=== PATIENT | female | born 1990 | race Caucasian/White ===

== ENCOUNTER 2019-10-20 20:56 | Outpatient (CLI) | payer OTHER ==
[~2019-10-20] VITALS: Ht 167.6 cm; Wt 69.1 kg
[2019-10-20 21:04] VITALS: BP 109/74
[2019-10-20 21:50] LABS: MICROSCOPIC INDICATED
[2019-10-20] MEDS ORDERED: TERBUTALINE 1 MG/ML, 1ML ONE (21:54)
[2019-10-20] MEDS ORDERED: TERBUTALINE 1 MG/ML, 1ML SQ ONE (22:00)
== END 2019-10-20 23:33 | disposition home or self-care (01) ==
LOC: LDOP 20:56
PROVIDERS: ATTEND Student in an Organized Health Care Education/Training Program
DX: O26.893 Other specified pregnancy related conditions, third trimester (principal); R10.9 Unspecified abdominal pain; Z3A.32 32 weeks gestation of pregnancy
CPT/HCPCS: 59025; 81001; 87086; 96372; 99201; J3105; G0463

== ENCOUNTER 2019-11-16 03:49 | Inpatient (IN) | payer OTHER ==
[~2019-11-16] VITALS: Ht 167.6 cm; Wt 72.3 kg
[2019-11-16 04:01] VITALS: BP 120/77
[2019-11-16] MEDS ORDERED: OXYTOCIN 30U/ 0.9% NaCL 500ML 500 ML IV PRN (05:01)
[2019-11-16] MEDS ORDERED: OXYTOCIN 30U/ 0.9% NaCL 500ML 500 ML IV ONE (05:01)
[2019-11-16] MEDS ORDERED: D5%-LACTATED RINGERS 1,000 ML IV SCH (05:01)
[2019-11-16 05:04] LABS: MICROSCOPIC INDICATED
[2019-11-16] MEDS ORDERED: LIDOCAINE 1%, 20ML ONE (05:12)
[2019-11-16] MEDS ORDERED: MISOPROSTOL 200 MCG TABLET ONE (05:12)
[2019-11-16] MEDS ORDERED: OXYTOCIN 30U/ 0.9% NaCL 500ML 500 ML ONE ×2 (05:12→10:15)
[2019-11-16] MEDS ORDERED: PREN1TAB60 PO (05:14)
[2019-11-16] MEDS ORDERED: NEWBORN KIT ONE (05:21)
[2019-11-16] MEDS ORDERED: FENTANYL PF 100 MCG/2ML IVPush PRN (05:30)
[2019-11-16] MEDS ORDERED: ONDANSETRON 2MG/ML, 2ML IVPush PRN (05:30)
[2019-11-16] MEDS ORDERED: PENICILLIN GK 5,000,000 UNITS in DEXTROSE 5% 100 ML IVPB ONE (05:30)
[2019-11-16] MEDS ORDERED: TERBUTALINE 1 MG/ML, 1ML IVPush PRN (05:30)
[2019-11-16] MEDS ORDERED: FENTANYL PF 100 MCG/2ML IV PRN (05:30)
[2019-11-16] MEDS ORDERED: TERBUTALINE 1 MG/ML, 1ML SQ PRN (05:30)
[2019-11-16] MEDS: LACTATED RINGERS 1,000 ML IV SCH ×3 (06:03→10:17)
[2019-11-16] MEDS ORDERED: FENTANYL/BUPIV./NS/PF 250 ML EPIDCONT SCH (06:05)
[2019-11-16 06:20] LABS: BASOPHILS # (AUTO) 0.03 x10^3/uL (0-0.1); BASOPHILS % (AUTO) 0 % (0-1); EOSINOPHILS # (AUTO) 0.07 x10^3/uL (0-0.4); EOSINOPHILS % (AUTO) 1 % (1-7); LYMPHOCYTES # (AUTO) 1.64 x10^3/uL (1-3.4); LYMPHOCYTES % (AUTO) 17 % (22-44); MD NO; MEAN CORPUSCULAR HEMOGLOBIN 33.9 pg (27.0-34.8); MEAN CORPUSCULAR HGB CONC 34.2 g/dL (32.4-35.8); MEAN CORPUSCULAR VOLUME 99.2 fL (80-100); MEAN PLATELET VOLUME 9.1 fL (7.4-10.4); MONOCYTES # (AUTO) 0.66 x10^3/uL (0.2-0.8); MONOCYTES % (AUTO) 7 % (2-9); NEUTROPHILS # (AUTO) 7.22 x10^3/uL (1.8-6.8); NEUTROPHILS % (AUTO) 75 % (42-75); PLATELET COUNT 182 x10^3/uL (130-400); RED BLOOD COUNT 4.25 x10^6/uL (3.82-5.3); RED CELL DISTRIBUTION WIDTH 12.3 % (9.6-15.2)
[2019-11-16] MEDS ORDERED: FENTANYL PF 500 MCG, BUPIVACAINE/PF 0.5%, 30ML 62.5 ML in SODIUM CHLORIDE 0.9% 177.5 ML EPIDCONT SCH (06:30)
[2019-11-16] MEDS ORDERED: FENTANYL PF 100 MCG/2ML ONE (06:33)
[2019-11-16] MEDS ORDERED: BUPIVACAINE 0.25% ONE (06:49)
[2019-11-16] MEDS ORDERED: LIDOCAINE/PF 1.5%-EPI 1:200K, 30ML ONE (06:55)
[2019-11-16] MEDS ORDERED: BETAMETHASONE 6 MG/ML, 5ML IM ONE ×2 (07:03→07:30)
[2019-11-16] MEDS ORDERED: SIMETHICONE 80 MG CHEW TAB PO PRN (09:00)
[2019-11-16] MEDS ORDERED: PENICILLIN GK 2,500,000 UNITS in DEXTROSE 5% 100 ML IVPB SCH (09:30)
[2019-11-16] MEDS: OXYTOCIN 30U/ 0.9% NaCL 500ML 500 ML IV SCH ×2 (10:18→18:50)
[2019-11-16 10:55] VITALS: BP 114/70
[2019-11-16 14:51] VITALS: BP 111/72
[2019-11-16] MEDS: PRENATAL VIT/IRON/FA 1 EACH TABLET PO SCH (15:18)
[2019-11-16 17:27] LABS: MEAN CORPUSCULAR HGB CONC 34.4 g/dL (32.4-35.8); MEAN PLATELET VOLUME 9.6 fL (7.4-10.4); PLATELET COUNT 206 x10^3/uL (130-400); RED BLOOD COUNT 4.28 x10^6/uL (3.82-5.3); RED CELL DISTRIBUTION WIDTH 12.3 % (9.6-15.2)
[2019-11-16 17:41] LABS: MD YES
[2019-11-16 18:00] LABS: <PLATELET ESTIMATE> ADEQUATE; <PLT MORPHOLOGY> NORMAL PLT MORPH; <RBC MORPHOLOGY> NORMAL; BAND#(MANUAL) 0.41 x10^3/uL; BANDS%(MANUAL) 3 % (0-7); LYMPH#(MANUAL) 0.97 x10^3/uL (1-3.4); LYMPHS% (MANUAL) 7 % (22-44); MONOS#(MANUAL) 0.14 x10^3/uL (0.3-2.7); MONOS% (MANUAL) 1 % (2-9); SEG#(MANUAL) 12.28 x10^3/uL (1.8-6.8); SEGS% (MANUAL) 89 % (42-75)
[2019-11-16] MEDS ORDERED: METHYLERGONOVINE 0.2 MG/ML IM PRN (19:00)
[2019-11-16] MEDS ORDERED: CARBOPROST TROMETHAMINE 250 MCG/ML, 1ML IM PRN (19:00)
[2019-11-16] MEDS ORDERED: MISOPROSTOL 200 MCG TABLET PO PRN (19:00)
[2019-11-16] MEDS ORDERED: OXYcodone/APAP 5/325MG TABLET PO PRN ×2 (19:00)
[2019-11-16 20:02] VITALS: BP 130/87
[2019-11-17] VITALS: BP 126/79
[2019-11-17] MEDS: IBUPROFEN 600 MG TABLET PO PRN ×3 (02:40→20:09)
[2019-11-17] MEDS: OXYTOCIN 30U/ 0.9% NaCL 500ML 500 ML IV SCH ×2 (04:23→14:50)
[2019-11-17 05:21] VITALS: BP 120/82
[2019-11-17 07:25] VITALS: BP 114/73
[2019-11-17] MEDS: DOCUSATE 100 MG CAPSULE PO PRN ×2 (09:20→20:09)
[2019-11-17] MEDS: PRENATAL VIT/IRON/FA 1 EACH TABLET PO SCH (09:20)
[2019-11-17 20:15] VITALS: BP 126/84
[2019-11-18] MEDS: OXYTOCIN 30U/ 0.9% NaCL 500ML 500 ML IV SCH (00:50)
[2019-11-18] MEDS: IBUPROFEN 600 MG TABLET PO PRN (04:58)
[2019-11-18 07:30] VITALS: BP 129/81
[2019-11-18] MEDS: PRENATAL VIT/IRON/FA 1 EACH TABLET PO SCH (09:00)
[2019-11-18] MEDS ORDERED: IBUP-1222 PO (09:03)
== END 2019-11-18 10:30 | disposition home or self-care (01) | DRG 807 ==
LOC: LDOP 03:49 → LDIP 05:19 → 2NW 10:44
PROVIDERS: ADMIT Student in an Organized Health Care Education/Training Program; ATTEND Student in an Organized Health Care Education/Training Program
PROC: 10E0XZZ Delivery of Products of Conception, External Approach (ICD-10-PCS; principal; 2019-11-16)
PROC: 3E0R3BZ Introduction of Anesthetic Agent into Spinal Canal, Percutaneous Approach (ICD-10-PCS; 2019-11-16)
PROC: 00HU33Z Insertion of Infusion Device into Spinal Canal, Percutaneous Approach (ICD-10-PCS; 2019-11-16)
PROC: 0HQ9XZZ Repair Perineum Skin, External Approach (ICD-10-PCS; 2019-11-16)
PROC: 3E0234Z Introduction of Serum, Toxoid and Vaccine into Muscle, Percutaneous Approach (ICD-10-PCS; 2019-11-16)
DX: O42.913 Preterm premature rupture of membranes, unspecified as to length of time between rupture and onset of labor, third trimester (principal); Z37.0 Single live birth; O70.0 First degree perineal laceration during delivery; Z3A.36 36 weeks gestation of pregnancy; O26.893 Other specified pregnancy related conditions, third trimester
CPT/HCPCS: 36415; J3490; S0020; 81001; 84112; 85025; 85461; 86592; 86850; 86900; 87086; G0378; J0702; J2540; J2790; J3010; J2590; J7050; J7120